=== PATIENT | female | born 1970 | race African-American/Black ===

== ENCOUNTER 2016-08-30 07:50 | Emergency (ER) | payer MEDICAID ==
[~2016-08-30] VITALS: Ht 154.9 cm; Wt 90.0 kg
[2016-08-30] MEDS ORDERED: METOCLOPRAMIDE HCL 10MG/2ML VIAL IV ONE (09:00)
[2016-08-30] MEDS ORDERED: DIPHENHYDRAMINE 50MG/ML VIAL IV ONE (09:00)
[2016-08-30] MEDS ORDERED: SODIUM CHLORIDE 0.9% 1,000 ML IV ONE (09:00)
[2016-08-30] MEDS ORDERED: KETOROLAC 30MG/ML VIAL IV ONE (12:45)
[2016-08-30 15:10] VITALS: BP 133/87
== END 2016-08-30 15:45 | disposition home or self-care (01) ==
LOC: ER 07:53
DX: G43.909 Migraine, unspecified, not intractable, without status migrainosus (principal); D35.2 Benign neoplasm of pituitary gland
CPT/HCPCS: 70450; 70551; 81025; 96361; 96374; 96375; 99285; J1200; J1885; J2765; J7030; Z7610

== ENCOUNTER → 2024-12-28 | Outpatient (CLI) | payer MEDICAID | END | disposition home or self-care (01) | LOC: US 07:29 | DX: D25.9 Leiomyoma of uterus, unspecified (principal); N83.291 Other ovarian cyst, right side; N85.4 Malposition of uterus; N85.2 Hypertrophy of uterus; Z79.890 Hormone replacement therapy | CPT/HCPCS: 76830; 76856 ==